=== PATIENT | female | born 1980 | race Caucasian/White ===

== ENCOUNTER 2016-08-29 14:11 | Emergency (ER) | payer SELFPAY | END 2016-08-29 17:23 | disposition left against medical advice (07) | LOC: UCEAST 14:11 | DX: R05 Cough (principal); Z53.20 Procedure and treatment not carried out because of patient's decision for unspecified reasons ==

== ENCOUNTER 2017-08-19 16:34 | Emergency (ER) | payer SELFPAY ==
[2017-08-19 16:51] VITALS: BP 124/81
--- NOTE | 2017-08-19 17:40 | RAD ---
HISTORY: Cough, fever COMPARISONS: November 27, 2006 VIEWS: 4: Frontal dual-energy and lateral views of the chest. FINDINGS: CARDIOMEDIASTINAL SILHOUETTE: The cardiomediastinal silhouette is normal. BENNY: The benny are normal. PLEURA: The costophrenic angles are sharp. No pleural abnormalities are noted. LUNG PARENCHYMA: The lungs are clear. ABDOMEN: The upper abdomen is clear. There is no subphrenic gas. BONES AND SOFT TISSUES: No bone or soft tissue abnormalities are noted. OTHER: None. IMPRESSION: NO ACTIVE CARDIOPULMONARY DISEASE.
--- NOTE | 2017-08-19 17:50 | UC ---
Debra Seth Nilda, scribed for Russ Lovell MD on 08/19/17 at 1716 . Respiratory Complaint HPI - HPI Summary HPI Summary: This patient is a 36 year old F presenting to [facility] with a chief complaint of constant worsening productive cough (green) for the past 4-5 days. The patient rates the pain 8/10 in severity. Symptoms aggravated and alleviated by nothing including OTC meds. Patient reports ringing ears with pain bilat (right worse than left), sore throat secondary to cough, and headache, but denies rash. Recent sick contacts at work and home. Pt states she believes is not . - History of Current Complaint Chief Complaint: UCRespiratory Stated Complaint: resp complaint Hx Obtained From: Patient Hx Last Menstrual Period: 07/17/2017 Onset/Duration: Sudden Onset, Lasting Days, Still Present Severity Currently: Severe Pain Intensity: 8 Pain Scale Used: 0-10 Numeric Character: Cough: Productive, Sputum Description: - green Aggravating Factors: Nothing Alleviating Factors: Nothing - Allergies/Home Medications Allergies/Adverse Reactions: Allergies Allergy/AdvReac Type Severity Reaction Status Date / Time No Known Allergies Allergy Verified 09/20/15 08:18 Home Medications: Home Medications D-Methorphan/PE/Acetaminophen [Gnp Day Time Cold/Flu Rel] 1 liq PO 08/19/17 [ History] PMH/Surg Hx/FS Hx/Imm Hx Previously Healthy: Yes - Surgical History Surgical History: Yes Surgery Procedure, Year, and Place: ovarian cyst removed; 2 c-sections - Family History Known Family History: Positive: None - reviewed and noncontributory - Social History Alcohol Use: Occasionally Substance Use Type: None Smoking Status (MU): Never Smoked Tobacco Review of Systems Skin: Other - negative rash ENT: Sore Throat - secondary to cough, Ear Ache - bilat pain and ringing Respiratory: Cough Neurological: Headache All Other Systems Reviewed And Are Negative: Yes Physical Exam Triage Information Reviewed: Yes Vital Signs: Initial Vital Signs Temp 98.2 F 08/19/17 16:46 Pulse 91 08/19/17 16:46 Resp 18 08/19/17 16:46 BP 124/81 08/19/17 16:46 Pulse Ox 98 08/19/17 16:46 Vital Signs Reviewed: Yes - Additional Comments Appearance: Well-appearing, Well-nourished Skin: Warm Eyes: Normal ENT: Normal Neck: Supple, nontender Respiratory: Clear to auscultation Cardiovascular: Normal S1, S2. No murmurs. Normal distal pulses in tibial and radial bilaterally. Abdomen: Soft, nontender Musculoskeletal: Normal, Strength/ROM Intact Neurological: Normal, A&Ox3 Psychiatric: Normal General: No acute distress UC Diagnostic Evaluation - Laboratory O2 Sat by Pulse Oximetry: 98 - Radiology Radiology Interpretation Completed By: Radiologist - CXR, per radiologist, reveals no active cardiopulmonary disease. Respiratory Course/Dx - Course Course Of Treatment: This patient is a 36 year old F presenting to [facility] with a chief complaint of constant worsening productive cough (green) for the past 4-5 days. The patient rates the pain 8/10 in severity. Symptoms aggravated and alleviated by nothing including OTC. Patient reports ringing ears with pain bilat (right worse than left), sore throat secondary to cough, and headache, but denies rash. Recent sick contacts at work and home. Pt states she believes is not . CXR, per radiologist, reveals no active cardiopulmonary disease. Dr. Lovell has reviewed this radiology report. No evidence of active otitis, pt given symptomatic treatment, outside the window for tamiflu. in no acute distress, vitals stable, agrees ot and understands dc instructions. - Differential Dx/Diagnosis Provider Diagnoses: influenza Discharge - Discharge Plan Condition: Stable Disposition: HOME Prescriptions: Acetaminop/Codeine 30 MG TAB* [Tylenol/Codeine 30 MG TAB*] 1 tab PO Q8H PRN #10 tab MDD 3 tabs PRN Reason: Cough Patient Education Materials: Influenza (ED) Forms: *Work Release Referrals: Jer Miranda MD [Primary Care Provider] - Additional Instructions: PLEASE TAKE MEDICATIONS DIRECTED PLEASE KEEP YOURSELF WELL HYDRATED WITH SMALL AMOUNTS OF FLUID MORE FREQUENTLY THROUGHOUT THE DAY PLEASE SEEK MEDICAL ATTENTION IMMEDIATELY IF YOU HAVE ANY WORSENING OR CONCERNING SYMPTOMS PLEASE MAKE AN APPOINTMENT TO BE SEEN BY YOUR PRIMARY CARE DOCTOR WITHIN [address]IVE OR OPERATE MACHINERY WHILE TAKING THIS MEDICATION The documentation as recorded by the Debra montoya Nilda accurately reflects the service I personally performed and the decisions made by , Russ Lovell MD.
== END 2017-08-19 18:15 | disposition home or self-care (01) ==
LOC: UCEAST 16:34
DX: J11.1 Influenza due to unidentified influenza virus with other respiratory manifestations (principal); H93.13 Tinnitus, bilateral
CPT/HCPCS: 71046; 87502; 99212; G0463

== ENCOUNTER 2017-09-09 14:21 | Emergency (ER) | payer SELFPAY ==
[2017-09-09] MEDS ORDERED: guaiFENesin LIQ* 100 MG/5 ML UDC PO ONE (16:10)
[2017-09-09] MEDS ORDERED: Albuterol/Ipratropium NEB.SOL* Albuterol 2.5 MG/Ipratropium 0.5 MG 3 ML INH ONE (16:10)
--- NOTE | 2017-09-09 16:46 | UC ---
Respiratory Complaint HPI - HPI Summary HPI Summary: 36 year old female with no significant pmhx with complaint of sore throat and cough. patient reports she was seen here few weeks ago and tested positive for influenza B. She was seen at another afterwards for right ear pain, and she reports she was given otic steroids for inflammation, but unsure if she was given antibiotics. She comes here today for persistent productive cough and hoarseness. She reports productive cough with yellow sputum and denies any n/v/ d. No dysphagia or odynophagia. Reports mild right ear pain but no discharge. No other complaints. - History of Current Complaint Chief Complaint: UCGeneralIllness Stated Complaint: EAR ACHE Time Seen by Provider: 09/09/17 16:00 Hx Last Menstrual Period: August 12 Onset/Duration: Gradual Onset Timing: Constant Pain Intensity: 7 Character: Cough: Productive Alleviating Factors: Spontaneous Resolution Associated Signs And Symptoms: Positive: URI, Nasal Congestion, Hoarseness. Negative: Dyspnea, Pleuritic Chest Pain, Hemoptysis, Sinus Discomfort - Allergies/Home Medications Allergies/Adverse Reactions: Allergies Allergy/AdvReac Type Severity Reaction Status Date / Time No Known Allergies Allergy Verified 09/20/15 08:18 PMH/Surg Hx/FS Hx/Imm Hx Previously Healthy: Yes - Surgical History Surgical History: Yes Surgery Procedure, Year, and Place: ovarian cyst removed; 2 c-sections - Family History Known Family History: Positive: None - reviewed and noncontributory - Social History Alcohol Use: Occasionally Substance Use Type: None Smoking Status (MU): Never Smoked Tobacco Review of Systems Constitutional: Negative Skin: Negative Eyes: Negative ENT: Ear Ache Respiratory: Cough Cardiovascular: Negative Gastrointestinal: Negative Genitourinary: Negative Motor: Negative Neurovascular: Negative Musculoskeletal: Negative Neurological: Negative Psychological: Negative All Other Systems Reviewed And Are Negative: Yes Physical Exam Triage Information Reviewed: Yes Appearance: Well-Appearing, No Pain Distress Vital Signs: Initial Vital Signs Temp 36.9 C 09/09/17 14:51 Pulse 89 09/09/17 14:51 Resp 16 09/09/17 14:51 BP 130/61 09/09/17 14:51 Pulse Ox 100 09/09/17 14:51 Eye Exam: Normal Eyes: Positive: Conjunctiva Clear ENT Exam: Normal ENT: Positive: Normal ENT inspection, Pharynx normal, TMs normal, Hoarse voice. Negative: Nasal congestion, Nasal drainage, Tonsillar swelling, Tonsillar exudate, Trismus Neck exam: Normal Neck: Positive: Supple, Nontender, No Lymphadenopathy Respiratory Exam: Normal Respiratory: Positive: Chest non-tender, Lungs clear, Normal breath sounds, No respiratory distress Cardiovascular Exam: Normal Cardiovascular: Positive: RRR, No Murmur, Pulses Normal Abdomen Description: Positive: Nontender, No Organomegaly, Soft Musculoskeletal Exam: Normal Neurological Exam: Normal Psychological Exam: Normal Skin Exam: Normal UC Diagnostic Evaluation - Laboratory O2 Sat by Pulse Oximetry: 100 - Radiology Xray Interpretation: No Acute Changes Radiology Interpretation Completed By: Radiologist Respiratory Course/Dx - Differential Dx/Diagnosis Differential Diagnosis/HQI/PQRI: Laryngitis, Lower Resp Infection, Sinusitis Provider Diagnoses: Laryngitis Discharge - Discharge Plan Condition: Good Disposition: HOME Prescriptions: Acetaminop/Codeine 30 MG TAB* [Tylenol/Codeine 30 MG TAB*] 1 - 2 tab PO Q6H PRN #10 tab MDD 2 PRN Reason: Cough Albuterol HFA INHALER* [Ventolin HFA Inhaler*] 1 - 2 puff INH Q6H PRN #1 mdi PRN Reason: Cough Patient Education Materials: Laryngitis (ED) Forms: *Work Release Referrals: Jer Miranda MD [Primary Care Provider] -
--- NOTE | 2017-09-09 17:16 | RAD ---
INDICATION: 3 weeks productive cough. Shortness of breath. Assess for pneumonia. COMPARISON: August 19, 2017 TECHNIQUE: Dual energy PA and routine lateral views of the chest were obtained. REPORT: Obese body habitus limits image quality. No focal pulmonary lesion, compelling alveolar consolidation, pleural effusion, pneumothorax. The heart, pulmonary vasculature, and mediastinal contours are unremarkable. No thoracic fractures evident. IMPRESSION: No evidence for pneumonia. No evidence for acute intrathoracic disease.
[2017-09-09 17:29] VITALS: BP 110/55
== END 2017-09-09 18:16 | disposition home or self-care (01) ==
LOC: UCEAST 14:21
DX: J04.0 Acute laryngitis (principal)
CPT/HCPCS: 71046; 84702; 99212; A9270-GY; G0463

== ENCOUNTER 2019-01-25 15:23 | Emergency (ER) | payer SELFPAY ==
[2019-01-25 15:58] VITALS: BP 129/73
--- NOTE | 2019-01-25 16:07 | UC ---
Upper Extremity HPI - HPI Summary HPI Summary: 38 yo female presents with LEFT upper arm pain. She tells me that 2 months ago she woke up and noticed some pain to her left upper arm. She thought she slept on it wrong and applied heat and took ibuprofen - pain improved, but never went away. Since that time she has been resting her shoulder a lot and over the last month has noticed that she has significant trouble with folding clothes at work , lifting her hand above her head, placing her hand behind her back, or lifting weighted objects. She is right handed. She does have some tingling that radiates down into her left hand with certain left shoulder movements. She has been taking 800mg ibuprofen for the last 1.5 months with initial relief, but over the last month has not really healed - thus stopped taking it 2 weeks ago. She denies headache, neck pain, specific injury. - History of Current Complaint Chief Complaint: UCUpperExtremity Stated Complaint: L ARM PAIN Time Seen by Provider: 01/25/19 16:05 Hx Obtained From: Patient Hx Last Menstrual Period: 01/14/19 Onset/Duration: Gradual Onset Severity Initially: Moderate Severity Currently: Severe Pain Intensity: 7 Pain Scale Used: 0-10 Numeric - Allergies/Home Medications Allergies/Adverse Reactions: Allergies Allergy/AdvReac Type Severity Reaction Status Date / Time No Known Allergies Allergy Verified 01/25/19 15:58 PMH/Surg Hx/FS Hx/Imm Hx - Additional Past Medical History Additional PMH: None - Surgical History Surgical History: Yes Surgery Procedure, Year, and Place: ovarian cyst removed; 2 c-sections - Family History Known Family History: Positive: Diabetes - Social History Occupation: Employed Full-time Lives: With Family Alcohol Use: None Substance Use Type: None Smoking Status (MU): Never Smoked Tobacco Review of Systems All Other Systems Reviewed And Are Negative: Yes Constitutional: Positive: Negative Skin: Positive: Negative Respiratory: Positive: Negative Cardiovascular: Positive: Negative Neurovascular: Positive: Negative Musculoskeletal: Positive: Other: - Left shoulder and arm pain Neurological: Positive: Negative Psychological: Positive: Negative Physical Exam - Summary Physical Exam Summary: GENERAL: NAD. WDWN. No pain distress. SKIN: No rashes, sores, lesions, or open wounds. CHEST: No accessory muscle use. Breathing comfortably and in no distress. CV: Pulses intact radial and ulnar. Cap refill <2seconds MSK: LEFT SHOULDER: TTP at biceps origin. Active flexion to 90deg before pain stops her. Positive apleys, empty can, rod-rosa. 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 No edema or obvious bony deformities. LEFT UPPER ARM: TTP along biceps muscle without dez muscle, hematoma, or appreciable mass. LEFT ELBOW: FROM, but pain in left upper arm with supination. NEURO: Alert. Sensations intact C4-T1 B/L UEs. PSYCH: Age appropriate behavior. Triage Information Reviewed: Yes Vital Signs: Initial Vital Signs Temp 98 F 01/25/19 15:50 Pulse 97 01/25/19 15:50 Resp 16 01/25/19 15:50 BP 129/73 01/25/19 15:50 Pulse Ox 98 01/25/19 15:50 Vital Signs Reviewed: Yes Upper Extremity Course/Dx - Course Course Of Treatment: XR shoulder: REPORT AND IMPRESSION: #. Negative for fracture. #. Normal acromioclavicular and glenohumeral joint alignment. #. 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 #. Negative for calcific tendinopathy or abnormal soft tissue contour. XR humerus: IMPRESSION: NO EVIDENCE FOR FRACTURE. I suspect her pain began as a muscle strain/spasm that has progressed into some degree of adhesive capsulitis and/or biceps tendinitis. In the clinic she was given toradol IM for her discomfort. Will start her with flexeril and tramadol and refer her to PT and Orthopedics for further eval and treatment. iSTOP: Reference #: [id number] - Differential Dx/Diagnosis Provider Diagnosis: Left shoulder pain, Left arm pain Discharge - Sign-Out/Discharge Documenting (check all that apply): Patient Departure All imaging exams completed and their final reports reviewed: Yes - Discharge Plan Condition: Stable Disposition: HOME Prescriptions: Cyclobenzaprine TAB* [Flexeril 10 MG TAB*] 10 mg PO BID PRN #20 tab PRN Reason: Pain Meloxicam 7.5 mg PO BID PRN #30 tablet PRN Reason: Pain traMADol TAB* [Ultram*] 50 mg PO BID PRN #8 tab MDD 2 PRN Reason: Pain Patient Education Materials: Adhesive Capsulitis (ED), Tendinitis (ED), Shoulder Pain (ED) Referrals: Jer Miranda MD [Primary Care Provider] - Frances Locke MD [Medical Doctor] - As Soon As Possible Additional Instructions: If you develop a fever, shortness of breath, chest pain, new or worsening symptoms - please call your PCP or go to the ED immediately. 1) Apply heat/ice to your shoulder and arm to decrease pain 2) Practice gentle range of motion exercises 3) I recommend that you call Physical Therapy and Orthopedics to schedule appointments for further evaluation and treatment of your arm pain 4) Do not take ibuprofen/aleve/naproxen with the meloxicam as these medications are related and may interact 5) Do not take the TRAMADOL and FLEXERIL together as these could interact and have bad side effects - Billing Disposition and Condition Condition: STABLE Disposition: Home - Attestation Statements Provider Attestation: Per institutional requirements, I have reviewed the chart, however, I was not consulted specifically or made aware of this patient by the midlevel provider. I did not personally evaluate, interact with , or disposition this patient.
[2019-01-25] MEDS ORDERED: Ketorolac *IM* INJ* 60 MG/2 ML VIAL IM ONE (16:17)
== END 2019-01-25 17:15 | disposition home or self-care (01) ==
LOC: UCEAST 15:23
DX: M79.622 Pain in left upper arm (principal); M25.512 Pain in left shoulder
CPT/HCPCS: 96372; 99212; G0463; J1885

== ENCOUNTER 2019-04-10 14:54 | Emergency (ER) | payer SELFPAY ==
[2019-04-10 15:01] VITALS: BP 125/77
--- NOTE | 2019-04-10 15:12 | UC ---
UC Dental HPI - HPI Summary HPI Summary: pain in 3 upper tooth left of center---has been getting worse past 2 days - History of Current Complaint Chief Complaint: UCDentalProblem Stated Complaint: TOOTH ACHE Time Seen by Provider: 04/10/19 15:07 Hx Obtained From: Patient Hx Last Menstrual Period: 04/09/19 ?: No Onset/Duration: Sudden Onset, Lasting Days - 2, Still Present Pain Intensity: 8 Pain Scale Used: 0-10 Numeric Aggravating Factor(s): Chewing Alleviating Factor(s): Nothing - Allergies/Home Medications Allergies/Adverse Reactions: Allergies Allergy/AdvReac Type Severity Reaction Status Date / Time No Known Allergies Allergy Verified 04/10/19 15:01 PMH/Surg Hx/FS Hx/Imm Hx Previously Healthy: Yes - Surgical History Surgical History: Yes Surgery Procedure, Year, and Place: ovarian cyst removed; 2 c-sections - Family History Known Family History: Positive: None - reviewed and noncontributory, Diabetes - Social History Occupation: Employed Full-time Lives: With Family Alcohol Use: None Substance Use Type: None Smoking Status (MU): Never Smoked Tobacco Review of Systems All Other Systems Reviewed And Are Negative: Yes Constitutional: Positive: Negative Skin: Positive: Negative Eyes: Positive: Negative ENT: Positive: Dental Pain Respiratory: Positive: Negative Cardiovascular: Positive: Negative Gastrointestinal: Positive: Negative Genitourinary: Positive: Negative Motor: Positive: Negative Neurovascular: Positive: Negative Musculoskeletal: Positive: Negative Neurological: Positive: Negative Psychological: Positive: Negative Is Patient Immunocompromised?: No Physical Exam Triage Information Reviewed: Yes Appearance: Well-Appearing, No Pain Distress, Obese Vital Signs: Initial Vital Signs Temp 98.2 F 04/10/19 14:58 Pulse 93 04/10/19 14:58 Resp 18 04/10/19 14:58 BP 125/77 04/10/19 14:58 Pulse Ox 100 04/10/19 14:58 Vital Signs Reviewed: Yes Eye Exam: Normal Eyes: Positive: Conjunctiva Clear ENT Exam: Normal ENT: Positive: Normal ENT inspection, Hearing grossly normal, Pharynx normal, Pharyngeal erythema, Nasal congestion Dental Exam: Other Dental: Positive: Percussion Tenderness @, Gross Decay/Caries @ Neck exam: Normal Neck: Positive: Supple, Nontender, No Lymphadenopathy Respiratory Exam: Normal Respiratory: Positive: No respiratory distress, No accessory muscle use Cardiovascular Exam: Normal Cardiovascular: Positive: Pulses Normal, Brisk Capillary Refill Musculoskeletal Exam: Normal Musculoskeletal: Positive: Strength Intact, ROM Intact, No Edema Neurological Exam: Normal Neurological: Positive: Alert, Muscle Tone Normal Psychological Exam: Normal Skin Exam: Normal Dental Complaint Course/Dx - Course Course Of Treatment: ibuprofen, amoxicillin follow with [facility] this week - Differential Dx/Diagnosis Provider Diagnosis: Dental caries Discharge ED - Sign-Out/Discharge Documenting (check all that apply): Patient Departure All imaging exams completed and their final reports reviewed: No Studies - Discharge Plan Condition: Stable Disposition: HOME Prescriptions: Amoxicillin PO (*) [Amoxicillin 500 MG CAP*] 500 mg PO TID #30 cap Ibuprofen TAB* [Motrin TAB* 800 MG] 800 mg PO TID PRN #30 tab PRN Reason: pain Patient Education Materials: Toothache (ED) Referrals: Jer Miranda MD [Primary Care Provider] - Additional Instructions: Follow with your dental provider at [facility] this week - Billing Disposition and Condition Condition: STABLE Disposition: Home
== END 2019-04-10 15:17 | disposition home or self-care (01) ==
LOC: UCEAST 14:54
DX: K02.9 Dental caries, unspecified (principal)
CPT/HCPCS: 99212; G0463